=== PATIENT | female | born 1995 | race Caucasian/White ===

== ENCOUNTER 2019-06-08 20:05 | Emergency (ER) | payer OTHER, BC ==
[2019-06-08 20:48] LABS: Specific Gravity 1.015 (1.005-1.030)
[2019-06-08 20:53] LABS: Urine Blood TRACE (NEG); Urine Glucose NEGATIVE (NEG); Urine Protein NEGATIVE (NEG); Urine pH 7.5 (5.0-7.0)
[2019-06-08] MEDS ORDERED: IBUPROFEN 400 MG TAB ONE (21:01)
[2019-06-08] MEDS ORDERED: ACETAMINOPHEN 500 MG TAB ONE (21:01)
--- NOTE | 2019-06-08 22:25 | EDPHYS ---
Physician Documentation [facility] Name: Perri Morrison Age: 24 yrs Sex: Female : 1995 Arrival Date: 06/08/2019 Time: 20:06 Bed 20 Private MD: ED Physician Amadeo Padilla HPI: 06/08 20:30 This 24 yrs old Female presents to ER via EMS with complaints of Back Pain. cp 20:30 The patient presents with pain that is acute. The symptoms are located in the low back. cp Onset: The symptoms/episode began/occurred today. 20:30 intermittent down bilateral leg with intermittent tingling and weakness. Associated cp signs and symptoms: Pertinent negatives: abdominal pain, chest pain, constipation, fever, incontinence, numbness, urinary retention. The problem was sustained when lifting 30 lb weight at work today around 1300. 20:30 Modifying factors: the patient symptoms are aggravated by movement. Severity of cp symptoms: in the emergency department the symptoms are actually worse, moderately. 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 - Social history:: Smoking status: Patient/guardian denies using tobacco, Patient/guardian denies using alcohol, street drugs. - Ebola Screening: : Patient negative for fever greater than or equal to 101.5 degrees Fahrenheit, and additional compatible Ebola Virus Disease symptoms Patient denies exposure to infectious person Patient denies travel to an Ebola-affected area in the 21 days before illness onset. ROS: 20:40 Constitutional: Negative for body aches, chills, fever, poor PO intake. cp 20:40 Eyes: Negative for injury, pain, redness, and discharge. cp 20:40 Cardiovascular: Negative for chest pain, edema, palpitations. cp 20:40 Neck: Negative for pain with movement, pain at rest, stiffness. cp 20:40 Respiratory: Negative for cough, shortness of breath, wheezing. 20:40 Abdomen/GI: Negative for abdominal pain, nausea, vomiting, and diarrhea, constipation, bowel incontinence. 20:40 Back: Positive for pain at rest, pain with movement, of the low back area. 20:40 MS/extremity: Negative for injury or acute deformity, decreased range of motion, paresthesias. 20:40 Skin: Negative for rash. 20:40 Neuro: Negative for altered mental status, dizziness, headache, numbness, weakness. 20:40 All other systems are negative. Exam: 20:45 Constitutional: The patient appears in no acute distress, alert, awake, non-toxic, well cp developed, well nourished, uncomfortable. 20:45 Head/Face: Normocephalic, atraumatic. cp 20:45 Eyes: Periorbital structures: appear normal, Conjunctiva: normal, no exudate, no injection, Lids and lashes: appear normal, bilaterally. 20:45 ENT: External ear(s): are unremarkable, Nose: is normal, Mouth: Lips: moist, Oral mucosa: moist, Posterior pharynx: is normal, airway is patent, no erythema, no exudate. 20:45 Neck: ROM/movement: is normal, is supple, without pain, no range of motions limitations, no nuchal rigidity. 20:45 Chest/axilla: Inspection: normal, Palpation: is normal, no crepitus, no tenderness. 20:45 Cardiovascular: Rate: normal, Rhythm: regular. 20:45 Respiratory: the patient does not display signs of respiratory distress, Respirations: normal, no use of accessory muscles, no retractions, no splinting, no tachypnea, labored breathing, is not present. 20:45 Abdomen/GI: Inspection: abdomen appears normal, Bowel sounds: active, all quadrants, Palpation: abdomen is soft and non-tender, in all quadrants. 20:45 Back: pain, that is moderate, of the low back area, ROM is painful, with all movement. 20:45 Neuro: Orientation: is normal, Mentation: is normal, Motor: moves all fours, strength is normal, Sensation: is normal. Vital Signs: 20:03 BP 121 / 71; Pulse 84; Resp 16; Temp 99.2(O); Pulse Ox 100% on R/A; Weight 65.77 kg fc (R); Height 5 ft. 10 in. (177.80 cm) (R); Pain 5/10; 20:52 BP 121 / 71; Pulse 80; Resp 16; Temp 98.9; Pulse Ox 100% on R/A; ak1 22:27 BP 107 / 61; Pulse 72; Resp 16; Pulse Ox 100% on R/A; jb4 20:03 Body Mass Index 20.81 (65.77 kg, 177.80 cm) fc MDM: 20:14 Patient medically screened. ritika 20:45 Differential diagnosis: chronic back pain, Pyelonephritis ruptured disc, cp Ureterolithiasis vertebral fracture, spinal stenosis, cauda equina. 22:23 Data reviewed: vital signs, nurses notes, lab test result(s), radiologic studies, plain cp films, and as a result, I will discharge patient. 22:23 Counseling: I had a detailed discussion with the patient and/or guardian regarding: the cp historical points, exam findings, and any diagnostic results supporting the discharge/admit diagnosis, lab results, radiology results, the need for outpatient follow up, a family practitioner, to return to the emergency department if symptoms worsen or persist or if there are any questions or concerns that arise at home. 22:23 Response to treatment: the patient's symptoms have markedly improved after treatment, cp and as a result, I will discharge patient. ED course: VSS. Pain improved and patient observed ambulating in ED unassisted. Will discharge to home for continued monitoring. 06/08 20:42 Order name: Urine Dipstick--Ancillary (enter results); Complete Time: 22:23 ar5 06/08 20:42 Order name: Test, Urine EDMS 06/08 20:23 Order name: XRAY Lumbar Spine (3 Views) cp 06/08 20:23 Order name: Urine Dipstick-Ancillary (obtain specimen); Complete Time: 20:25 cp 06/08 20:23 Order name: Urine Test (obtain specimen); Complete Time: 20:25 cp Administered Medications: 20:30 Not Given (Patient Refused): morphine 4 mg IM once ak1 20:45 Not Given (Patient Refused): Ketorolac 60 mg IM once ak1 20:47 Drug: Tylenol 1000 mg Route: PO; ak1 21:10 Follow up: Response: No adverse reaction; Pain is decreased jb4 20:47 Drug: Motrin 800 mg Route: PO; ak1 21:10 Follow up: Response: No adverse reaction; Pain is decreased jb4 Disposition: 06/08/19 22:24 Discharged to Home. Impression: Low back pain. - Condition is Stable. - Discharge Instructions: Back Pain, Adult, Back Exercises, [id number]. - Prescriptions for Medrol (Mann) 4 mg Oral Tablets, Dose Pack - take 1 tablet by ORAL route as directed - follow package instructions; 1 packet. - Medication Reconciliation Form, Thank You Letter, Antibiotic Education, Prescription Opioid Use form. - Follow up: Private Physician; When: 2 - 3 days; Reason: Recheck today's complaints. - Problem is new. - Symptoms have improved. Addendum: 06/10/2019 07:10 Co-signature as Attending Physician, Amadeo Padilla MD I agree with the assessment and c montoya plan of care. Signatures: Dispatcher [employer] EDAmadeo Dominique MD MD cha Chretien, Felicia, RN RN Brigette Sheehan RN RN ak1 Amadeo Smith PA PA cp Bryson, James, RN RN jb4 Corrections: (The following items were deleted from the chart) 06/08 22:52 22:24 06/08/2019 22:24 Discharged to Home. Impression: Low back pain. Condition is jb4 Stable. Forms are Medication Reconciliation Form, Thank You Letter, Antibiotic Education, Prescription Opioid Use. Follow up: Private Physician; When: 2 - 3 days; Reason: Recheck today's complaints. Problem is new. Symptoms have improved. cp
--- NOTE | 2019-06-08 22:25 | ER ---
Nurse's Notes [facility] Name: Perri Morrison Age: 24 yrs Sex: Female : 1995 Arrival Date: 06/08/2019 Time: 20:06 Bed 20 Private MD: Diagnosis: Low back pain Presentation: 06/08 20:03 Presenting complaint: Patient states: that she was lifting weights (30#) at 1300 today. fc Now is unable to move due to severe back pain. Transition of care: patient was not received from another setting of care. Onset of symptoms was June 08, 2019. Risk Assessment: Do you want to hurt yourself or someone else? Patient reports no desire to harm self or others. Initial Sepsis Screen: Does the patient meet any 2 criteria? No. Patient's initial sepsis screen is negative. Does the patient have a suspected source of infection? No. Patient's initial sepsis screen is negative. Care prior to arrival: None. 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 - Social history:: Smoking status: Patient/guardian denies using tobacco, Patient/guardian denies using alcohol, street drugs. - Ebola Screening: : Patient negative for fever greater than or equal to 101.5 degrees Fahrenheit, and additional compatible Ebola Virus Disease symptoms Patient denies exposure to infectious person Patient denies travel to an Ebola-affected area in the 21 days before illness onset. Screenin:09 Abuse screen: Denies threats or abuse. Nutritional screening: No deficits noted. fc Tuberculosis screening: No symptoms or risk factors identified. Fall Risk None identified. Assessment: 20:18 General: Appears in no apparent distress. Behavior is calm, cooperative. Pain: ak1 Complains of pain in coccyx, left lower back and right lower back. Neuro: Level of Consciousness is awake, alert, obeys commands, Oriented to person, place, time. Cardiovascular: No deficits noted. Respiratory: No deficits noted. GI: No signs and/or symptoms were reported involving the gastrointestinal system. : No signs and/or symptoms were reported regarding the genitourinary system. EENT: No signs and/or symptoms were reported regarding the EENT system. Derm: No signs and/or symptoms reported regarding the dermatologic system. Musculoskeletal: Range of motion: pt able to move bilateral legs and bend both legs Reports pain in coccyx, left lower back and right lower back since today after lifting 30 pound weights. 20:47 Reassessment: Patient appears in no apparent distress at this time. Patient and/or ak1 family updated on plan of care and expected duration. Pain level reassessed. Patient is alert, oriented x 3, equal unlabored respirations, skin warm/dry/pink. pt ambulated to restroom with steady gait. Patient states feeling better. Patient states symptoms have improved. 22:00 Reassessment: Patient appears in no apparent distress at this time. Patient and/or jb4 family updated on plan of care and expected duration. Pain level reassessed. Patient is alert, oriented x 3, equal unlabored respirations, skin warm/dry/pink. 22:50 Reassessment: Patient appears in no apparent distress at this time. Patient and/or jb4 family updated on plan of care and expected duration. Pain level reassessed. Patient is alert, oriented x 3, equal unlabored respirations, skin warm/dry/pink. Pt verbalized understanding of d/c and follow up instructions. Vital Signs: 20:03 BP 121 / 71; Pulse 84; Resp 16; Temp 99.2(O); Pulse Ox 100% on R/A; Weight 65.77 kg fc (R); Height 5 ft. 10 in. (177.80 cm) (R); Pain 5/10; 20:52 BP 121 / 71; Pulse 80; Resp 16; Temp 98.9; Pulse Ox 100% on R/A; ak1 22:27 BP 107 / 61; Pulse 72; Resp 16; Pulse Ox 100% on R/A; jb4 20:03 Body Mass Index 20.81 (65.77 kg, 177.80 cm) ED Course: 20:03 Arm band placed on Patient placed in an exam room, on a stretcher. fc 20:06 Patient arrived in ED. fc 20:07 Amadeo Smith PA is PHCP. cp 20:07 Amadeo Padilla MD is Attending Physician. cp 20:08 Brigette Fontana, RN is Primary Nurse. ak1 20:08 Triage completed. fc 20:09 Patient has correct armband on for positive identification. Bed in low position. Call fc light in reach. Side rails up X2. Pulse ox on. NIBP on. 20:09 No provider procedures requiring assistance completed. fc 20:48 Patient did not have IV access during this emergency room visit. ak1 21:41 XRAY Lumbar Spine (3 Views) In Process Unspecified. EDMS 22:52 Primary Nurse role handed off by Brigette Fontana RN jb4 22:52 Domenico Dawkins, RN is Primary Nurse. jb4 Administered Medications: 20:30 Not Given (Patient Refused): morphine 4 mg IM once ak1 20:45 Not Given (Patient Refused): Ketorolac 60 mg IM once ak1 20:47 Drug: Tylenol 1000 mg Route: PO; ak1 21:10 Follow up: Response: No adverse reaction; Pain is decreased jb4 20:47 Drug: Motrin 800 mg Route: PO; ak1 21:10 Follow up: Response: No adverse reaction; Pain is decreased jb4 Outcome: 22:24 Discharge ordered by . cp 22:50 Discharged to home ambulatory, with family. jb4 22:50 Condition: stable 22:50 Discharge instructions given to patient, significant other, Instructed on discharge instructions, follow up and referral plans. medication usage, Demonstrated understanding of instructions, follow-up care, medications, Prescriptions given X 1. 22:52 Patient left the ED. jb4 Signatures: Dispatcher [employer] EDVT Mora Velazquez RN RN Brigette Fontana, RN RN ak Amadeo Smith PA PA cp Domenico Dawkins, RN RN jb4
--- NOTE | 2019-06-09 08:51 | RAD REPORT ---
EXAM DESCRIPTION: RAD - Lumbar Spine 3 Views - 06/08/2019 9:47 pm CLINICAL HISTORY: Weight lifting accident, acute onset back pain COMPARISON: None. FINDINGS: A three-view lumbar spine examination was performed. Approximately 20% compression fracture deformity involves the superior aspect L1 body. This wedge com pression shows preservation of posterior wall height. No significant encroachment into the central ca nal identifiable. No lytic, sclerotic or expansile component. Age of the compression fracture is un k nown. No comparison imaging or relevant history available. Remaining lumbar bodies are normal in height and alignment. No other evidence for acute or chronic fr acture change. No abnormal disc space narrowing present. L5-S1 disc space is narrowed due to sacral i s aeration of L5. Remaining disc spaces are normal. No facet joint suspicious finding. No pars defect s identified. IUD is in place only partially imaged. IMPRESSION: Approximately 20% wedge compression fracture of the L1 body with age unknown. If there is no history of fracture, follow-up MR imaging could be performed to assess for active cece ow edema, disc herniation or other acute component.
== END 2019-06-08 22:52 | disposition home or self-care (01) ==
LOC: ER 20:05
DX: M54.5 Low back pain (principal); Z88.2 Allergy status to sulfonamides; Z91.040 Latex allergy status
CPT/HCPCS: 72100; 81003; 81025; 99284